=== PATIENT | female | born 1985 | race Caucasian/White ===

== ENCOUNTER 2017-12-20 14:55 | Inpatient (IN) ==
[2017-12-20] MEDS ORDERED: Ondansetron 4 MG/2 ML VIAL IVP PRN (15:14)
[2017-12-20] MEDS ORDERED: Metoclopramide 10 MG/2 ML VIAL IVP PRN (15:14)
[2017-12-20] MEDS ORDERED: *HR* Nalbuphine 10 MG/ML AMPUL IVP PRN (15:14)
[2017-12-20] MEDS ORDERED: Famotidine 20 MG/2 ML VIAL IVP PRN (15:14)
[2017-12-20] MEDS ORDERED: Naloxone 0.4 MG/ML INJ IVP PRN (15:14)
[2017-12-20 15:48] LABS: Basophils % 0.2 %; Eosinophils % 0.1 %; Hematocrit 37.1 % (35.3-44.9); Hemoglobin 12.6 g/dL (11.5-15.4); Immature Granulocytes % 1.1 % (0-4); Lymphocytes # 2.1 K/mcL (0.6-4.6); Lymphocytes % 18.6 %; Mean Corpuscular Hemoglobin 27.2 pg (28.0-33.3); Mean Platelet Volume 12.7 fL (9.4-12.4); Monocytes # 0.5 K/mcL (0.0-1.3); Monocytes % 4.6 %; Neutrophils # 8.6 K/mcL (1.6-8.9); Platelet Count 257 K/mcL (140-400); Red Blood Count 4.64 M/mcL (3.82-4.97); Red Cell Distribution Width 13.8 % (11.5-14.5); Segmented Neutrophils % 75.4 %
--- NOTE | 2017-12-20 15:50 | OB/GYN History & Physical ---
Date of Encounter: 12/20/17 Time of Encounter: 15:46 Assessment and Plan (1) 38 weeks gestation of Current visit: Yes Status: Acute (2) Positive GBS test Current visit: Yes Status: Acute (3) Polyhydramnios affecting in third trimester Current visit: Yes Status: Acute (4) Preeclampsia Current visit: Yes Status: Acute Preeclampsia without severe features based on blood pressure and UPCR 0.[address] Davis plan for IOL. Pt denies GARCIAS, vision changes or epigastric pain. Normal reflexes. Plan for IOL with gastelum balloon given SVE 2/60/-2. GBS positive. Will treat with PCN. Anticipate . Qualifiers: Trimester: third trimester Qualified Code(s): O14.93 - Unspecified pre- eclampsia, third trimester (5) Leiomyoma in , uterine, antepartum Current visit: Yes Status: Acute History of Present Illness Chief complaint: Elevated blood pressure HPI: Ms. Balderas is a 32 year old female presenting at 38w4d from office for IOL due elevated blood pressure and polyhydramnios. This has been complicated by morbid obesity and leiomyoma. Blood type B positive Rubella immune Serologies negative GBS positive Past Med Surg Social Fam HX - Past Medical History Medical history: no medical history Psychiatric history: no psych history - Past Surgical History Surgical History: no surgical history - Social History Smoking Status: Former smoker Alcohol use: none Drug use: unknown - Family History Father Living Status: Still Living Hx Family Cardiac Disorders: Yes (HTN, "heart problems") Hx Family Respiratory Disorders: No Hx Family Cancer: No Hx Family GI Disorders: No Hx Family Genitourinary Disorders: No Hx Family Endocrine Disorder: No Hx Family Musculoskeletal Disorders: No Hx Family Neuromuscular Disorders: No Hx Family Neurologic Disorders: No Hx Family HEENT Disorders: No Hx Family Autoimmune Disorders: No Hx Family Reproductive Disorders: No Hx Family Psychosocial Disorders: No Hx Family Medical Disorders: No Obstetrical History - Pregnancies : 1 Medications and Allergies Acetaminophen [Tylenol] 650 mg PO Q6HR 12/20/17 [History] Ferrous Sulfate [Iron] 325 mg PO DAILY 12/20/17 [History] Vit/Iron Fumarate/FA [ Tablet] 1 each PO DAILY 12/20/17 [ History] 3 Allergy/AdvReac Type Severity Reaction Status Date / Time No Known Allergies Allergy Verified 12/20/17 15:48 Review of System OB All systems PM: reviewed and no additional remarkable complaints except as stated Exam - Constitutional Constitutional: well developed, well nourished, no acute distress, obese - HEENT HEENT: Mucus Membranes Moist - Lungs Respiratory exam: CTAB - Cardiovascular Cardiovascular exam: RRR - Abdomen Abdomen: Present: gravid, non tender - Extremities Extremities exam: normal inspection, pedal edema (mild edema bilaterally) Deep Tendon Reflex Grade: 2+ Normal - Vulva Vulva: bilateral: normal - Vagina Vagina: Present: normal moisture - Cervix Dilation: 2 Effacement: 60 Station: -2 - Uterus Uterus exam: Present: enlarged (polyhydramnios, LGA fetus, and leiomyoma present ) - Anus/Rectum Anus/Rectum: Present: normal perianal skin Results Result Diagrams: 12/20/17 15:33 12/20/17 15:33 All other labs normal.
[2017-12-20 16:06] LABS: Amphetamine Screen,Urine Negative ng/mL (Cutoff=1000); Barbiturate Screen,Urine Negative ng/mL (Cutoff=200); Benzodiazepines Screen,Urine Negative ng/mL (Cutoff=200); Cannabinoid Screen,Urine Negative ng/mL (Cutoff = 50); Cocaine Screen,Urine Negative ng/mL (Cutoff= 300); Opiate Screen,Urine Negative ng/mL (Cutoff=300); Phencyclidine Screen,Urine Negative ng/mL (Cutoff=25); Protein/Creatinine Ratio,Urine 0.4 mg/mg (0.00-0.20)
[2017-12-20 16:08] LABS: Alanine Aminotransferase 10 Units/L (7-52); Aspartate Amino Transferase 21 Units/L (13-39); BUN/Creatinine Ratio 16 (6-26); Blood Urea Nitrogen 10 mg/dL (6-20); Lactate Dehydrogenase 188 Units/L (140-271); Uric Acid 5.2 mg/dL (2.3-7.6); eGFR For African Americans > 60 (> 60); eGFR For Non-African Americans > 60 (> 60)
[2017-12-20] MEDS ORDERED: Penicillin G Potassium 5,000,000 UNIT in 0.9 % Sodium Chloride Mini Bag 100 ML IVPB ONE (18:41)
--- NOTE | 2017-12-20 18:41 | OB Labor Progress Note ---
Date of Encounter: 12/20/17 Time of Encounter: 18:38 Labor Progress Note - Subjective Subjective: Pt denies complaints at this time. - Cervix Cervix: 2/60/-2 - Heart Tones Heart Tones: Category I - [place]: irregular and mild - Interventions Interventions: Jenkins placed in cervix using sterile technique. Balloon inflated with 30ml sterile water. Pt tolerated well. - Plan Plan: Allow positioning on birthing ball and ambulation with intermittent monitoring as long as BP is normal. Plan for AROM when able and placement of internal monitors due to difficulty monitoring with maternal habitus.
[2017-12-20] MEDS: Penicillin G Potassium 2,500,000 UNIT in 0.9 % Sodium Chloride 100 ML IVPB SCH ×2 (19:01→23:21)
[2017-12-20] MEDS: Ringers Solution, Lactated 1,000 ML IVC SCH (19:02)
--- NOTE | 2017-12-20 20:37 | Anesthesia Evaluation PreOp ---
Date of Encounter: 12/20/17 Time of Encounter: 20:35 - Past History Planned Operation: FELICITAS Cardiac History: HTN (PIH) Pulmonary History: Denies Any Significant HX Other Medical History: GERD, Other ([place] - BMI 48+) Anesthesia History: No Prior Anesthetic Complications : Yes Test: Positive Alcohol Use: none Drug use: unknown Medications and Allergies Acetaminophen [Tylenol] 650 mg PO Q6HR 12/20/17 [History] Ferrous Sulfate [Iron] 325 mg PO DAILY 12/20/17 [History] Vit/Iron Fumarate/FA [ Tablet] 1 each PO DAILY 12/20/17 [ History] 3 Allergy/AdvReac Type Severity Reaction Status Date / Time No Known Allergies Allergy Verified 12/20/17 15:48 - Meds/Allergy Pre-op Review Medications Reviewed: Yes Allergies Reviewed: Yes Beta Blockers on Current Med List: No Anesthesia Results - Labs 12/20/17 15:33 12/20/17 15:33 Anesthesia Exam 130/90 102 16 fht 134 Height: 5'3" Weight: 124 kg NPO (# of Hours): 2 Pain Scale: 2 Pain Scale Used: Numeric (1 - 10) - HEENT Pupil (Motor): Pupils equal Mallampati: III Teeth: Normal Oral Opening: Greater than 3 - SERVICES TECH LOC: Oriented SERVICES TECH Motor: Normal RUE, Normal LUE, Normal RLE, Normal LLE, Normal Face SERVICES TECH Sensory: Normal: RUE, LUE, RLE, LLE, Face - Cardiac Rhythm: Regular Murmur: None - Pulmonary Breath Sounds: bilateral Clear Respiratory Effort: Symmetrical Anesthesia Assess/Plan ASA Score: 3 ([place], HTN) Modified [place] Scale for Level of Consciousness: Cooperative, oriented, and tranquil Anesthetic Plan: Regional (risks discussed, questions answered, consented) Autologous Blood: No Monitoring Plan: Standard Monitors Recovery Plan: Other
--- NOTE | 2017-12-20 22:14 | OB Labor Progress Note ---
Date of Encounter: 12/20/17 Time of Encounter: 22:12 Labor Progress Note - Subjective Subjective: Pt reports mild discomfort with contractions. She denies GARCIAS or vision changes. - Vital Signs Vital Signs: BP's normal to mild range. - Heart Tones Heart Tones: FHT reassuring when auscultated 130 BPM before during and following a contraction. Plan for continuous monitoring once pt receives medication for induction. FHT difficult to trace due to maternal habitus and positioning for comfort. She was reporting severe pain when she was in the bed for monitoring. She is sitting in a recliner at this time. - [place]: irregular per pt report - Plan Plan: Await gastelum to come out. Plan for cytotec once gastelum is out. Nubain or epidural when requested. Will AROM when it is safe to do so. Anticipate .
[2017-12-21] MEDS ORDERED: Mag Hydrox/Al Hydrox/Simeth 30 ML UDC PO PRN (00:21)
[2017-12-21] MEDS: Penicillin G Potassium 2,500,000 UNIT in 0.9 % Sodium Chloride 100 ML IVPB SCH ×6 (03:17→23:40)
[2017-12-21] MEDS ORDERED: miSOPROStol 25 MCG TABLET PO SCH (04:00)
[2017-12-21] MEDS ORDERED: Oxytocin 20 units/ LR 1000 mL 20 UNIT/1,000 ML BAG IVC SCH (05:15)
--- NOTE | 2017-12-21 05:51 | OB Labor Progress Note ---
Date of Encounter: 12/21/17 Time of Encounter: 05:50 Labor Progress Note - Subjective Subjective: Pt able to rest off and on through the night. She denies any significant pain at this time. - Cervix Cervix: 60/BBOW - Heart Tones Heart Tones: Category I - [place]: irregular - Plan Plan: Begin pitocin augmentation. Epidural when requested.
--- NOTE | 2017-12-21 12:00 | OB Labor Progress Note ---
Date of Encounter: 12/21/17 Time of Encounter: 11:58 Labor Progress Note - Subjective Subjective: Pt reports she is barely feeling contractions - Cervix Cervix: 4/60/-3 - Heart Tones Heart Tones: Baseline 135 Moderate variability Accelerations 15x15 Few decelerations FHR Category I - [place]: Contractions q 4+ - Interventions Interventions: Peanut ball Continue frequent position changes - Plan Plan: Continue expectant management Increase pitocin per schedule and contraction pattern Anticipate Dr. Casillas aware of POC and agrees
--- NOTE | 2017-12-21 13:56 | OB Labor Progress Note ---
Date of Encounter: 12/21/17 Time of Encounter: 13:52 Labor Progress Note - Subjective Subjective: Pt reports contractions are more painful. Requesting nubain. - Cervix Cervix: 5/70/-2 - Heart Tones Heart Tones: Baseline 130 Moderate variability Accelerations present 15x15 No decelerations FHR Category I - [place]: Contractions every 1-3 minutes - Interventions Interventions: Continue position changes Increase pitocin when appropriate - Plan Plan: Continue expectant management Continue pitocin augmentation Continue frequent position changes Anticipate
[2017-12-21] MEDS: Ringers Solution, Lactated 1,000 ML IVC SCH ×2 (15:18→17:09)
[2017-12-21] MEDS ORDERED: Bupivacaine-MPF 0.25% 10 ML VIAL ONE ×2 (16:20→23:00)
[2017-12-21] MEDS ORDERED: *HR* FentaNYL (PF) 100 MCG/2 ML VIAL ONE ×2 (16:20→23:00)
[2017-12-21] MEDS ORDERED: Epidural Premix (fent/bupiv) 110 ML EP ONE (16:21)
[2017-12-21] MEDS ORDERED: *HR* FentaNYL (PF) 100 MCG/2 ML VIAL EP ONE (17:06)
[2017-12-21] MEDS ORDERED: Bupivacaine-MPF 0.25% 10 ML VIAL EP ONE (17:06)
--- NOTE | 2017-12-21 17:10 | Anesthesia Procedures ---
Date of Encounter: 12/21/17 Time of Encounter: 16:20 Procedures: Anesthesia - Epidural/Spinal Patient ID/Chart reviewed: Yes Patient examined: Yes OB Eval: Gestational age: 38 OB Eval: : 1 OB Eval: Hx Para: 0 OB Eval: Dilated at (cm): 5 OB Eval: Contractions: Non-stressed pattern Consent Obtained: Yes Supplemental Oxygen: None/Room Air Site Prep: Aseptic Technique, Sterile prep and drape, Povidone-Iodine 1% Patient position: upright Local Anesthetic: Lidocaine 1% Amount of Local Anesthetic used: 5 Touhy Needle Gauge: 18 Touhy Needle Depth (cm): 6 Catheter Depth at Skin (cm): 18 Test Dose (1.5% Lido + Epi): Volume given (mls): 3 Test Dose Result: Negative Loading Dose: 0.25% Marcaine (mls): 8 Loading Dose: Fentanyl (mcg): 100 Loading Dose Administered: Thru Catheter Infusion Med: 0.125% Bupivacaine w/ 2 mcg/ml Fentanyl Infusion Rate (mls/hr): [address]: Tegaderm, Tape Interspace Used: L3-L4 Loss of Resistance (BELA): Yes Blood: No CSF: No Paresthesia: No Vitals + FHT's: 3 Vital Signs Time 1620 1645 1650 1655 1700 BP 137/76 147/87 169/90 173/84 187/98 Pulse 8 86 99 97 90 FHTs 130 130 130 130 130
[2017-12-21] MEDS ORDERED: Epidural Premix (fent/bupiv) 110 ML EP SCH (17:15)
--- NOTE | 2017-12-21 20:53 | OB Labor Progress Note ---
Date of Encounter: 12/21/17 Time of Encounter: 20:51 Labor Progress Note - Subjective Subjective: Pt reports good pain relief from epidural. - Cervix Cervix: 6-7/90/-2 - Heart Tones Heart Tones: Baseline 145 Minimal to moderate variability Accelerations present 15x15 No decelerations FHR Category II - [place]: Contractions every 2-3 minutes. MVU on IUPC 220-240 - Interventions Interventions: AROM at [address] Casillas IUPC at [address] Casillas - Plan Plan: Continue expectant management Frequent position changes with peanut ball Anticipate Dr. Casillas aware of POC and agrees
--- NOTE | 2017-12-21 23:00 | OB Labor Progress Note ---
Date of Encounter: 12/21/17 Time of Encounter: 22:58 Labor Progress Note - Subjective Subjective: Pt reports sharp pain "between my legs" with contractions despite epidural placement. ANUPAMA Padgett notified and responding to bedside. She has not been tolerating peanut ball and position changes despite encouragement from nursing staff and CNM. - Cervix Cervix: 7/100/-1 - Heart Tones Heart Tones: Baseline 145 Minimal to moderate variability Accelerations present 15x15 No decelerations FHR Category I - [place]: Contractions every 2-3 minutes - Interventions Interventions: Epidural bolus per DEDICATED DRIVER - Plan Plan: Continue expectant management Encourage movement within bed Anticipate vaginal delivery
--- NOTE | 2017-12-21 23:21 | Anesthesia Progress Note ---
Date of Encounter: 12/21/17 Time of Encounter: 19:40 Anesthesia Note - Note Note: 12/21/17 23:19 called to LDR 8 for increasing pain with contrations since placed on side on peanut ball. Rates pain 8/10. Dilated 6 to 7cm. Epidural infusing without problems at 14ml per hour. Redosed epidural with 8ml 0.25% bupivacaine with 100mcg fentanyl in 3 divided doses. Blood pressure stable throughout. Patient does seem anxious and afraid of the possibility of pain with labor and delivery.
--- NOTE | 2017-12-21 23:29 | Anesthesia Progress Note ---
Date of Encounter: 12/21/17 Time of Encounter: 22:20 Anesthesia Note - Note Note: 12/21/17 23:22 called to LDR 8 for return of pain with contractions. Was reporting it an 04/20. Patient is sitting up in bed, on back and sayys she feels better in this position. Having contrations while speaking with me and unaware of them. Nurse states to patien that she cnnot stay sitting up due to risk of cervical edema. Will give patient another 15 minutes in this position, then will lie more flat or on side and re-evaluate pain. Upon re-evaluation, patient states pain is "excruciating" but does not appear in distress. Disussed with patient the risks associated with multiple redoses of epidural drugs and that she would not be able to get more boluses for several hours and that it is a very normal expectation that she would experience some discomfort and/or pain during the labor and delivery process.. Patient verbalized understanding. Redosed functioning epidural with 8ml 0.25% bupivacaine with 100mcg fentanyl in 3 divided doses. VSS and FHTs stable throughout.
[2017-12-22] MEDS ORDERED: Epidural Premix (fent/bupiv) 110 ML EP ONE ×3 (00:17→14:37)
[2017-12-22] MEDS ORDERED: Bupivacaine-MPF 0.25% 10 ML VIAL ONE (02:57)
[2017-12-22] MEDS ORDERED: *HR* FentaNYL (PF) 100 MCG/2 ML VIAL ONE ×2 (02:57→11:16)
--- NOTE | 2017-12-22 03:05 | OB Labor Progress Note ---
Date of Encounter: 12/22/17 Time of Encounter: 03:01 Labor Progress Note - Subjective Subjective: Pt reports inadequate pain relief from contractions. Also verbalizing that she is thinking about electing for section. - Cervix Cervix: 10/100/0 - Heart Tones Heart Tones: Baseline 150 Moderate variability Accelerations present 15x15 No decelerations FHR Category I - [place]: Contractions every 2-4 minutes - Interventions Interventions: SVE Pt was offered section as she was requesting. After further discussion , she elected to continue with plan for . We discussed, with Dr. Casillas present, that she could elect for if that is her choice and that we could not guarantee that she wouldn't end up with a section. Pt verbalized understanding and elected to proceed with plan for . - Plan Plan: Continue expectant management Labor down Anticipate Dr. Casillas aware of POC and agrees
[2017-12-22] MEDS: Penicillin G Potassium 2,500,000 UNIT in 0.9 % Sodium Chloride 100 ML IVPB SCH ×2 (03:42→08:00)
[2017-12-22] MEDS ORDERED: Lidocaine/EPI 1:200k 2% PF 20 ML VIAL ONE (07:55)
--- NOTE | 2017-12-22 08:18 | Anesthesia Progress Note ---
Date of Encounter: 12/22/17 Time of Encounter: 08:03 Anesthesia Note - Note Note: 12/22/17 08:14 vss, patient c/o pain vaginal area, constant non related to contractions, neg aspiration, patient aware of pressure/pain/progress, answered questions, informed may not able to get completely numb. RN and family at BS. bolus with 10ml lido 2% with EPI in 5 ml inc. will follow.
[2017-12-22] MEDS ORDERED: *HR* ROPIVACAINE 1% PF 100 MG/10 ML VIAL ONE (08:34)
--- NOTE | 2017-12-22 11:45 | Anesthesia Progress Note ---
Date of Encounter: 12/22/17 Time of Encounter: 11:31 Anesthesia Note - Note Note: 12/22/17 11:41 called to BS, c/o pain spoken with patient in regards to expectations with epidurals and stages of labor, requesting a bolus. neg aspiration given 3ml 0.75 % rop, 100mcg fent, 3ml lido with epi, vss though out, FHR stable per RN's. dressing intact, no swelling, no pain at insertion site to palpitation.
[2017-12-22] MEDS ORDERED: miSOPROStol 100 MCG TABLET PO ONE (12:22)
[2017-12-22] MEDS ORDERED: Lidocaine/EPI 1:100k 1% 50 ML VIAL INFILT ONE (15:22)
[2017-12-22] MEDS ORDERED: Lidocaine/EPI 1:100k 1% 20 ML VIAL INFILT ONE (15:22)
[2017-12-22] MEDS ORDERED: Lidocaine/EPI 1:100k 1% 30 ML VIAL INFILT ONE (15:30)
--- NOTE | 2017-12-22 16:31 | OB/GYN Procedure Note ---
Delivery - Delivery Date: 12/22/17 Provider: Page Frye Intrapartum events: prolonged labor- > = 20hr, prolonged 2nd stage>2.5hr Delivery induction: AROM, oxytocin, gastelum, misoprostol Delivery monitor: external FHT, external uterine, internal uterine Anesthesia: epidural Estimated Blood Loss: 1,500 - (s) Infant A Delivery Date: 12/22/17 Delivery Time: 15:30 Presentation: vertex Position: OA Route of delivery: Gender: Female Viability: Viable Pounds: 8 Ounces: 6 at 1 minute: 3 at 5 mins: 7 Shoulder Dystocia: encountered Shoulder Dystocia Maneuvers: Mehul maneuver, suprapubic pressure, Haider maneuver Specimens collected: cord blood Placenta: spontaneous Cord: 3 umbilical vessels - Repair Episiotomy: none Laceration Description: Vaginal - Complications Delivery complications: hemorrhage Delivery comments: Induction of labor for PIH, Progressed to complete, maternal bearing down efforts to of liveborn female, vertex delivered OA, no nuchal cord noted. Shoulder dystocia noted, Pt placed into Mehul, suprapubic pressure applied with no effect, attempted maternal repositioning, no effect, Haider maneuver with rotation of anterior shoulder led to delivery of anterior shoulder under pubic bone. limp placed on maternal abdomen cord immediately clamped and cut and infant taken to radiant warmer for intervention by nursery staff. APGARS 3/7. Second degree vaginal tear noted on the left hand side, repaired with 3-0 vycril. Placenta delivered spontaneously, intact and complete upon inspection. Large amount of bleeding noted with placental delivery. 400 po cytotec given. EBL 1500. fundus firm. Dr. Markham in attendance for all of delivery due to LGA diagnosis and assisted with the repair after unable to obtain adequate homeostasis. Mother left stable in recovery. taken to nursery for observation. - Disposition Mom disposition: stable in LDR disposition: taken to nursery
[2017-12-22] MEDS ORDERED: Acetaminophen 325 MG TABLET PO PRN (16:40)
[2017-12-22] MEDS ORDERED: Measles/Mumps/Rubella Vacc 0.5 ML VIAL SQ PRN (16:40)
[2017-12-22] MEDS ORDERED: Benzocaine/Menthol 56 GM AEROSOL SPRAY TP PRN (16:40)
[2017-12-22] MEDS ORDERED: Rho Immune Globulin 1,500 UNIT SYRINGE IM PRN (16:40)
[2017-12-22] MEDS ORDERED: Oxytocin 20 units/ LR 1000 mL 20 UNIT/1,000 ML BAG IVC SCH (16:40)
[2017-12-22] MEDS: Ibuprofen 600 MG TABLET PO SCH (17:03)
[2017-12-23] MEDS: Ibuprofen 600 MG TABLET PO SCH ×5 (00:07→23:25)
[2017-12-23] MEDS: Prenatal Vit/FA 1 EACH TABLET PO SCH (08:15)
[2017-12-23 09:39] LABS: Basophils % 0.1 %; Eosinophils % 0.2 %; Hematocrit 22.1 % (35.3-44.9); Immature Granulocytes % 1.2 % (0-4); Lymphocytes # 2.4 K/mcL (0.6-4.6); Lymphocytes % 14.6 %; Mean Corpuscular HGB Conc 32.6 g/dL (31.6-35.5); Mean Corpuscular Hemoglobin 26.4 pg (28.0-33.3); Mean Platelet Volume 12.5 fL (9.4-12.4); Monocytes % 6.2 %; Neutrophils # 12.7 K/mcL (1.6-8.9); Platelet Count 181 K/mcL (140-400); Red Blood Count 2.73 M/mcL (3.82-4.97); Red Cell Distribution Width 14.2 % (11.5-14.5); Segmented Neutrophils % 77.7 %
[2017-12-23 09:40] LABS: Hemoglobin 7.2 g/dL (11.5-15.4)
--- NOTE | 2017-12-23 10:14 | OB/GYN Progress Note ---
Date of Encounter: 12/23/17 Time of Encounter: 10:05 - Assessment and Plan (1) Status post vaginal delivery Current Visit: Yes Status: Acute s/p vag delivery, shoulder dystocia, PPH, PPD# 1, I spoke to the patient about her labs that dropped from 12 to 7.2 Hgb. She feels fine. She described her bleeding this AM like a heavy period. I counseled her that I recommend giving her 2 units of blood seeing how low she is. Usually between 7-9 and asymptomatic, I would not transfuse but given that she is 7.2 and still bleeding, I recommended 2 units of blood. Risks and benefits explained to her. Consent signed. CBC to be drawn 4 hrs after transfusion. Cont current PP care. Subjective - Subjective Patient reports: appetite normal, voiding normally, pain well controlled, ambulating normally : doing well Objective - Latest Vital Signs Latest vital signs: Vital Signs Temp Pulse Resp BP Pulse Ox 12/23/17 07:48 97.8 F 96 20 134/78 97 12/23/17 05:00 98.1 F 98 16 114/68 98 12/23/17 00:05 98.3 F 106 16 131/88 95 12/22/17 20:25 98.2 F 97 16 145/96 98 12/22/17 19:40 98.3 F 86 16 127/80 99 12/22/17 18:36 98.5 F 89 16 176/79 98 Intake and Output 12/22/17 12/23/17 12/23/17 23:59 07:59 15:59 Intake Total 0 / 0 240 / 240 Output Total 100 / 100 200 / 200 Balance -100 / -100 40 / 40 Intake: Oral 0 / 0 240 / 240 Output: Urine 100 / 100 200 / 200 Other: Meal Breakfast Percent of Meal Consumed 100% Weight 119.93 kg Patient Weight 12/23/17 23:59 Weight 119.93 kg - Exam Lungs: bilateral: normal Chest: Normal S1, Normal S2 Extremities: Present: normal Abdomen: Present: soft Uterus: Present: normal - Labs Labs: Laboratory Results - last 24 hr 12/23/17 09:08 WBC 16.3 H RBC 2.73 L Hgb 7.2 L D Hct 22.1 L MCV 81.0 L MCH 26.4 L MCHC 32.6 RDW 14.2 Plt Count 181 MPV 12.5 H Immature Gran % 1.2 Seg Neutrophils % 77.7 Lymphocytes % 14.6 Monocytes % 6.2 Eosinophils % 0.2 Basophils % 0.1 Neutrophils # 12.7 H Lymphocytes # 2.4 Monocytes # 1.0 Eosinophils # 0.0 Basophils # 0.0
[2017-12-23] MEDS ORDERED: 0.9 % Sodium Chloride 1,000 ML ONE (12:27)
[2017-12-23] MEDS: *HR* HYDROcodone/Acet 5/325 mg TABLET PO PRN (15:17)
[2017-12-24 03:07] LABS: Basophils % 0.1 %; Eosinophils # 0.1 K/mcL (0.0-0.6); Eosinophils % 0.6 %; Hematocrit 24.8 % (35.3-44.9); Hemoglobin 8.2 g/dL (11.5-15.4); Immature Granulocytes % 1.4 % (0-4); Lymphocytes # 2.8 K/mcL (0.6-4.6); Mean Corpuscular HGB Conc 33.1 g/dL (31.6-35.5); Mean Corpuscular Volume 81.6 fL (83.0-100.0); Mean Platelet Volume 11.6 fL (9.4-12.4); Monocytes # 0.7 K/mcL (0.0-1.3); Monocytes % 4.8 %; Neutrophils # 10.1 K/mcL (1.6-8.9); Platelet Count 172 K/mcL (140-400); Red Blood Count 3.04 M/mcL (3.82-4.97); Red Cell Distribution Width 14.1 % (11.5-14.5); Segmented Neutrophils % 73.1 %
[2017-12-24] MEDS: *HR* HYDROcodone/Acet 5/325 mg TABLET PO PRN (03:27)
[2017-12-24] MEDS: Ibuprofen 600 MG TABLET PO SCH ×2 (06:16→11:40)
[2017-12-24] MEDS: Prenatal Vit/FA 1 EACH TABLET PO SCH (08:17)
[2017-12-24 08:24] VITALS: BP 113/71
--- NOTE | 2017-12-24 08:27 | Discharge Summary ---
Date of Encounter: 12/24/17 Time of Encounter: 08:25 - Discharge Diagnosis (1) atony of uterus with hemorrhage, delivered Priority: Secondary Status: Acute (2) Posthemorrhagic anemia Priority: Secondary Status: Acute (3) Transfusion of blood during current hospitalisation Priority: Secondary Status: Acute (4) 38 weeks gestation of Priority: Secondary Status: Acute (5) Polyhydramnios affecting in third trimester Priority: Secondary Status: Acute (6) Positive GBS test Priority: Secondary Status: Acute (7) Preeclampsia Priority: Secondary Status: Acute Qualifiers: Trimester: third trimester Qualified Code(s): O14.93 - Unspecified pre- eclampsia, third trimester (8) Status post vaginal delivery Priority: Primary Status: Acute - Discharge Medications Prescriptions: HYDROcodone/Acet 5/325 mg [[place] 5-325 mg] 1 tab PO Q6HR PRN 7 Days #20 tablet PRN Reason: Moderate Pain (4-6) Ibuprofen [Motrin] 600 mg PO Q6HR #30 tablet Home Medications: Acetaminophen [Tylenol] 650 mg PO Q6HR 12/20/17 [History] Ferrous Sulfate [Iron] 325 mg PO DAILY 12/20/17 [History] Vit/Iron Fumarate/FA [ Tablet] 1 each PO DAILY 12/20/17 [ History] Benzocaine/Menthol [place] [Dermoplast [place]] 1 appl TP QID PRN aerosol 12/24/17 [Rx] Breast Pump [BREAST PUMP] 1 each .ROUTE AD #1 each 12/24/17 [Rx] Docusate [Colace] 100 mg PO BID capsule 12/24/17 [Rx] HYDROcodone/Acet 5/325 mg [[place] 5-325 mg] 1 tab PO Q6HR PRN 7 Days #20 tablet 12/24/17 [Rx] Ibuprofen [Motrin] 600 mg PO Q6HR #30 tablet 12/24/17 [Rx] Allergies/Adverse Reactions: 3 Allergy/AdvReac Type Severity Reaction Status Date / Time No Known Allergies Allergy Verified 12/20/17 15:48 Data Procedures and tests throughout hospitalization: Laboratory Tests 12/20/17 12/20/17 12/20/17 15:33 15:33 15:33 WBC 11.4 H RBC 4.64 Hgb 12.6 Hct 37.1 MCV 80.0 L MCH 27.2 L MCHC 34.0 RDW 13.8 Plt Count 257 MPV 12.7 H Immature Gran % 1.1 Seg Neutrophils % 75.4 Lymphocytes % 18.6 Monocytes % 4.6 Eosinophils % 0.1 Basophils % 0.2 Neutrophils # 8.6 Lymphocytes # 2.1 Monocytes # 0.5 Eosinophils # 0.0 Basophils # 0.0 BUN Creatinine Est GFR ( Amer) Est GFR (Non-Af Amer) BUN/Creatinine Ratio Uric Acid AST ALT Lactate Dehydrogenase Urine Creatinine 272 Protein/Creatinin Ratio 0.40 H Urine Total Protein 108 H Urine Opiates Screen Negative Ur Barbiturates Screen Negative Ur Phencyclidine Scrn Negative Ur Amphetamines Screen Negative U Benzodiazepines Scrn Negative Urine Cocaine Screen Negative U Marijuana (THC) Screen Negative Blood Type Antibody Screen Crossmatch 12/20/17 12/23/17 12/23/17 15:33 09:08 11:31 WBC 16.3 H RBC 2.73 L Hgb 7.2 L D Hct 22.1 L MCV 81.0 L MCH 26.4 L MCHC 32.6 RDW 14.2 Plt Count 181 MPV 12.5 H Immature Gran % 1.2 Seg Neutrophils % 77.7 Lymphocytes % 14.6 Monocytes % 6.2 Eosinophils % 0.2 Basophils % 0.1 Neutrophils # 12.7 H Lymphocytes # 2.4 Monocytes # 1.0 Eosinophils # 0.0 Basophils # 0.0 BUN 10 Creatinine 0.64 Est GFR ( Amer) > 60 Est GFR (Non-Af Amer) > 60 BUN/Creatinine Ratio 16 Uric Acid 5.2 AST 21 ALT 10 Lactate Dehydrogenase 188 Urine Creatinine Protein/Creatinin Ratio Urine Total Protein Urine Opiates Screen Ur Barbiturates Screen Ur Phencyclidine Scrn Ur Amphetamines Screen U Benzodiazepines Scrn Urine Cocaine Screen U Marijuana (THC) Screen Blood Type B POSITIVE Antibody Screen NEGATIVE Crossmatch See Detail 12/24/17 02:56 WBC 13.8 H RBC 3.04 L Hgb 8.2 L Hct 24.8 L MCV 81.6 L MCH 27.0 L MCHC 33.1 RDW 14.1 Plt Count 172 MPV 11.6 Immature Gran % 1.4 Seg Neutrophils % 73.1 Lymphocytes % 20.0 Monocytes % 4.8 Eosinophils % 0.6 Basophils % 0.1 Neutrophils # 10.1 H Lymphocytes # 2.8 Monocytes # 0.7 Eosinophils # 0.1 Basophils # 0.0 BUN Creatinine Est GFR ( Amer) Est GFR (Non-Af Amer) BUN/Creatinine Ratio Uric Acid AST ALT Lactate Dehydrogenase Urine Creatinine Protein/Creatinin Ratio Urine Total Protein Urine Opiates Screen Ur Barbiturates Screen Ur Phencyclidine Scrn Ur Amphetamines Screen U Benzodiazepines Scrn Urine Cocaine Screen U Marijuana (THC) Screen Blood Type Antibody Screen Crossmatch Labs on day of discharge: Labs from last 24 hours 12/24/17 12/23/17 12/23/17 02:56 11:31 09:08 WBC 13.8 H 16.3 H RBC 3.04 L 2.73 L Hgb 8.2 L 7.2 L D Hct 24.8 L 22.1 L MCV 81.6 L 81.0 L MCH 27.0 L 26.4 L MCHC 33.1 32.6 RDW 14.1 14.2 Plt Count 172 181 MPV 11.6 12.5 H Immature Gran % 1.4 1.2 Seg Neutrophils % 73.1 77.7 Lymphocytes % 20.0 14.6 Monocytes % 4.8 6.2 Eosinophils % 0.6 0.2 Basophils % 0.1 0.1 Neutrophils # 10.1 H 12.7 H Lymphocytes # 2.8 2.4 Monocytes # 0.7 1.0 Eosinophils # 0.1 0.0 Basophils # 0.0 0.0 Blood Type B POSITIVE Antibody Screen NEGATIVE Crossmatch See Detail Date of admission: 12/20/17 14:55 Primary care physician: Gris Oro, Consults: 12/22/17 16:40 Consult to Security Guard Supervisor [CONS] Routine Comment: Vaginal delivery, consult needed Discharging clinician: Oliva Markham Anticipated date of discharge: 12/24/17 - Patient Status Disposition: Home, Self-Care Condition: Good Functional capacity at discharge: independent ambulation Overall status at discharge: patient is progressing back to baseline - Discharge Instructions Follow Up With: Gris Oro, ABIEL [Primary Care Provider] - Amanda Davis DO [Partnered Physician] - Additional Instructions: Pelvic rest, call for heavy bleeding, soaking a maxi pad an hour - Diet and Activity Activity: increase activity as tolerated, resume usual activities as tolerated Diet: regular diet Hospital Course Procedures: Reason for admission: induction of labor, other (polyhydramnios), pre-eclampsia Delivery: Episiotomy: none Laceration: other (vaginal) Other procedures: transfusion (2U PRBCs) complications: transfusion, uterine atony Discharge diagnosis: IUP at term delivered, other [place] baby: female Hospital course: Patient with induction of labor for preeclampsia and polyhydramnios, morbid obesity, status post shoulder dystocia with vaginal delivery, uterine atony with post placental delivery acute blood loss of 1500 mL. Patient's hemoglobin dropped to 7.2 and patient received 2 units of PRBCs. Patient asymptomatic and requesting discharge on day 2 Time Attestation: Total time spent providing and/or coordinating discharge services: Time Spent: Less than 30 minutes Exam - Constitutional Vitals: Temp Pulse Resp BP Pulse Ox 98.1 F 97 16 113/71 99 12/24/17 08:23 12/24/17 08:23 12/24/17 08:23 12/24/17 08:23 12/24/17 08:23 General appearance IM: cooperative, A&O X 3, morbidly obese, pleasant, no acute distress, answers questions appropriately - Respiratory Respiratory exam: Present: CTAB. Absent: respiratory distress - Cardiovascular Cardiovascular exam IM: Present: RRR. Absent: irregular rhythm - GI/Abdominal GI/Abdominal exam IM: normal bowel sounds, soft, no peritoneal signs - Rectal Rectal exam: deferred - Uterine Tone: Firm Uterus Position: 2 Fingers Below Umbilicus - Extremities Exam Extremities exam IM: Present: pedal edema, warm. Absent: calf tenderness, tenderness - Neurological Exam Neurological exam: no focal deficits
== END 2017-12-24 12:23 | disposition home or self-care (01) | DRG 774 ==
LOC: 1NENULAB 14:55 → 1NENUOBS 12-22 18:34
PROVIDERS: ADMIT Obstetrics & Gynecology; ATTEND Obstetrics & Gynecology